=== PATIENT | male | born 1975 | race Caucasian/White ===

== ENCOUNTER 2021-04-02 13:27 | Outpatient (CLI) | payer BC | END 2021-04-02 14:10 | disposition home or self-care (01) | LOC: SLEEP 13:27 | PROVIDERS: ATTEND Nurse Practitioner | DX: G47.33 Obstructive sleep apnea (adult) (pediatric) (principal) | CPT/HCPCS: G0399 ==

== ENCOUNTER → 2022-12-01 | Outpatient (CLI) | payer BC ==
[~2022-12-01] VITALS: Ht 175.3 cm; Wt 118.2 kg
== END | disposition home or self-care (01) ==
LOC: PREOP 05:31
PROVIDERS: ATTEND Internal Medicine
DX: Z01.818 Encounter for other preprocedural examination (principal)

== ENCOUNTER 2022-12-09 07:10 | Day surgery (SDC) | payer BC ==
--- NOTE | 2022-12-01 07:08 | HISTORY AND PHYSICAL ---
DATE OF SERVICE: 12/09/2022 COLONOSCOPY SUMMARY HISTORY OF PRESENT ILLNESS: The patient is a 47-year-old white male referred by Dr. Phan for his first screening colonoscopy. He is deemed to be an average risk. He is not aware of any family history for colon cancer. He denies abdominal pain, melena, bright red blood per rectum or change in bowel habit. He reports no change in weight. He currently takes no medication. Reporting no significant past medical history. He reports no past surgeries. SOCIAL HISTORY: Father at age of 56 of lung cancer. Mother at the age of 65 of lung cancer as well. Both were heavy smokers. 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 REVIEW OF SYSTEMS: CONSTITUTIONAL: Denies night sweats, chills, fever, or change in weight. GASTROINTESTINAL: As noted in the HPI. CARDIOVASCULAR: Denies chest discomfort, orthopnea, PND or dyspnea on exertion. PULMONARY: Denies cough, wheezing or shortness of breath. PHYSICAL EXAMINATION: GENERAL: Reveals a pleasant male in no acute distress. VITAL SIGNS: Weight 261 pounds, blood pressure 120/80. HEENT: Unremarkable. Sclerae nonicteric. CHEST: Clear to auscultation. CARDIOVASCULAR: Reveals a regular rate and rhythm without murmur, S3, or S4. ABDOMEN: Soft, supple without mass, organomegaly, or tenderness. Bowel sounds positive. EXTREMITIES: Reveal no cyanosis, clubbing or edema. PLAN: The patient is being set up for his first screening colonoscopy, deemed to be of average risk. Prep instructions were given and questions were answered. I thank for the referral of this pleasant gentleman. 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
[~2022-12-09] VITALS: Ht 175.3 cm; Wt 118.2 kg
[2022-12-09] MEDS ORDERED: LACTATED RINGERS 1,000 ML IV STA (07:12)
[2022-12-09 07:41] VITALS: BP 133/88
--- NOTE | 2022-12-09 07:49 | Pre-Op Note & Conscious Sedat ---
Pre-Operative Progress Note Date H&P Reviewed: Dec 09, 2022 Time H&P Reviewed: 07:49 History & Physical: H&P Reviewed, Patient Examed, No changes noted Pre-Op Diagnosis: screening Conscious Sedation Pre-Proced ASA Score 2 For ASA 3 and 4: Consider anesthesia and medical clearance. Also, for patients with a history of failed moderate sedation consider anesthesia. Airway Lungs Heart ASA score ASA 1: a normal healthy patient ASA 2: a patient with a mild systemic disease (mid diabetes, controlled hypertension, obesity ASA 3: a patient with a severe systemic disease that limits activity (angina, COPD, prior Myocardial infarction) ASA 4: a patient with an incapacitating disease that is a constant threat to life (CHF, renal failure) ASA 5: a moribund patient not expected to survive 24 hrs. (ruptured aneurysm) ASA 6: a declared brain- patient whose organs are being harvested. For emergent operations, add the letter E after the classification Mallampati Classification Grade 2 Sedation Plan Analgesia, Amnesia, Plan communicated to team members, Discussed options with patient/fam, Discussed risks with patient/fam The patient is an appropriate candidate to undergo the planned procedure, sedation, and anesthesia. The patient immediately re-assessed prior to indication. KENTON ELIZABETH MD Dec 09, 2022 07:49
[2022-12-09] MEDS ORDERED: proPOfol 200 MG/20 ML (DIPRIVAN) VIAL IV ONE (08:29)
[2022-12-09] MEDS ORDERED: proPOfol 500 MG/50 ML (DIPRIVAN) VIAL IV ONE (08:29)
[2022-12-09 08:35] VITALS: BP 130/68
--- NOTE | 2022-12-09 08:37 | Progress Note-Post Operative ---
Post-Procedure Note Physician (s)/Hogshead Mat Assembler (s) Physician KENTON ELIZABETH MD Pre-Procedure Diagnosis Pre-Procedure Diagnosis: screening Post-Procedure Diagnosis Post-operative diagnosis: Prior to undergoing colonoscopy digital rectal evaluation was performed. Anal sphincter tone was normal and the perianal reflexes intact. The prostate is mild to moderately enlarged and a nodular on digital inspection. There are no other abnormalities are noted on digital inspection anal canal or distal rectal vault. The colonoscope was then inserted into the rectum and under direct visualization advanced the cecum. The cecum was identified by indication of the ileocecal valve and the cecal strap. Photographic documentation was obtained. A careful inspection was made as the colonoscope was withdrawn. Quality of prep was good. Findings: There are no evidence for internal or external hemorrhoids and the rectum was unremarkable. 2 3 mm sessile polyps were noted 1 in the mid sigmoid colon and the other in the proximal sigmoid colon they were biopsied and ablated and submitted for histopathology with no subsequent blood loss. No evidence of diverticular disease was identified. The descending colon splenic flexure transverse colon hepatic flexure ascending colon and cecum were unremarkable. Assessment: 2 diminutive polyps were biopsied and ablated 1 from the mid sigmoid colon and the other 1 from the proximal sigmoid colon with no subsequent blood loss. As long as there are no surprises on histopathology report would advocate consideration for repeat Screening colonoscopy in 10 years. The patient did exhibit X obstructive breathing pattern especially on his back during the procedure with body habitus concerning for underlying significant sleep apnea. This was discussed with the patient and advised return to discuss sleep study for sleep apnea evaluation with Dr. Phan. Sincerely, Kenton Elizabeth MD CC: Dr. Panda Phan. KENTON ELIZABETH MD Dec 09, 2022 08:37
[2022-12-09 08:40] VITALS: BP 131/70
[2022-12-09 08:45] VITALS: BP 131/70
[2022-12-09 09:09] VITALS: BP 120/80
--- NOTE | 2022-12-09 09:31 | Anesthesia-General Post-Op ---
MAC Patient Condition Mental Status/LOC: Same as Preop Cardiovascular: Satisfactory Nausea/Vomiting: Absent Respiratory: Satisfactory Pain: Controlled Complications: Absent Post Op Complications Complications None Follow Up Care/Instructions Patient Instructions None needed. Anesthesiology Discharge Order Discharge Order Patient is doing well, no complaints, stable vital signs, no apparent adverse anesthesia problems. No complications reported per nursing. GEO HAM CRNA Dec 09, 2022 09:31
--- NOTE | 2022-12-12 17:02 | Physician Query-Final Dx ---
SPENCER LYONS 12/12/22 1702: Clinic Account Progress/Dx Physician Query: Please clarify the manner which the polyps were removed: 2 diminutive polyps were biopsied and ablated 1 from the mid sigmoid colon and the other 1 from the proximal sigmoid colon with no subsequent blood loss. 1. Hot Biopsy forceps 2. Cold biopsy Date of Service Dec 09, 2022 at 07:10 KENTON ELIZABETH MD 12/13/22 1922: Clinic Account Progress/Dx DIAGNOSIS: Diagnosis 2 SPENCER LYONS Dec 12, 2022 17:02 KENTON ELIZABETH MD Dec 13, 2022 19:22
== END 2022-12-09 09:15 | disposition home or self-care (01) ==
LOC: ENDO 07:10
PROVIDERS: ATTEND Internal Medicine
DX: Z12.11 Encounter for screening for malignant neoplasm of colon (principal); D12.5 Benign neoplasm of sigmoid colon; N40.0 Benign prostatic hyperplasia without lower urinary tract symptoms; K63.5 Polyp of colon; R06.89 Other abnormalities of breathing
CPT/HCPCS: 88305

== ENCOUNTER → 2023-01-03 | Outpatient (CLI) | payer OTHER, BC ==
--- NOTE | 2023-01-03 09:32 | Diagnostic Imaging Report ---
EXAMINATION: Magnetic resonance imaging of the left wrist without contrast DATE: January 03, 2023. COMPARISON: None. HISTORY: 47-year-old male, left thumb and wrist pain. TECHNIQUE: Magnetic Resonance Imaging sequences were performed of the wrist without contrast. FINDINGS: TRIANGULAR FIBROCARTILAGE COMPLEX: The triangular fibrocartilage disc, dorsal radioulnar ligament, volar radioulnar ligament, ulnolunate ligament, ulnotriquetral ligament, extensor carpi ulnaris tendon and sheath, meniscal homologue are grossly intact. INTRINSIC LIGAMENTS: The scapholunate and lunotriquetral ligaments are intact. JOINTS: The radiocarpal, intercarpal, and distal radioulnar joints are intact. There is no joint effusion. CARPAL TUNNEL: The flexor retinaculum is unremarkable. The flexor digitorum superficialis and profundus are intact. The median nerve is unremarkable. FLEXOR TENDONS: The flexor carpi ulnaris, flexor pollicis longus and carpi radialis are intact. EXTENSOR TENDONS: There is tendinopathy and low-level tenosynovitis involving the first extensor compartment tendons. The additional extensor tendons are intact. BONE: The bones all have normal configuration. The bone marrow signal is within normal limits. Specifically, negative for fracture, osteomyelitis, osteonecrosis, or marrow replacing process. BURSAE AND SOFT TISSUES: The bursae and soft tissues surrounding the wrist are within normal limits. IMPRESSION: 1. Tendinopathy and low level tenosynovitis involving the first extensor compartment tendons. 2. Grossly intact intrinsic wrist ligaments and triangular fibrocartilage complex on non-arthrogram evaluation. 3. No acute fracture, bone contusion, or other bone marrow signal abnormality. 4. Unremarkable joint evaluation. Dictated by: Dictated on workstation # [id number]
== END ==
LOC: RAD 12-29 14:20
DX: M65.4 Radial styloid tenosynovitis [de Quervain] (principal); M77.9 Enthesopathy, unspecified
CPT/HCPCS: 73221